=== PATIENT | female | born 1980 | race Caucasian/White ===

== ENCOUNTER 2017-07-04 14:10 | Outpatient (CLI) | payer BC ==
[2017-07-04 17:57] VITALS: BP 140/76; PULSE 93; RESP 18; TEMP 98
--- NOTE | 2017-07-19 10:52 | P.MSEPDOC ---
Presenting Problems - Arrival Data Date of Arrival on Unit: 07/04/17 Time of Arrival on Unit: 14:00 Mode of Transport: Ambulatory - Complaint OB-Reason for Admission/Chief Complaint: Other Comment: feeling like she is aching in low abd and sacral pains. untimeable. no uti s/sx. no n/v/d. abd soft to palp. Medical History - Information : 1 Para: 0 Term: 0 : 0 Abortions: Spontaneous or Elective: 0 Number of Living Children: 0 - Gestational Age Gestational Age by DEMI (wks/days): 29 Weeks and 2 Days Review of Systems - Review of Systems Constitutional: No problems Breast: No problems ENT: No problems Cardiovascular: No problems Respiratory: No problems Gastrointestinal: No problems Genitourinary: No problems Musculoskeletal: No problems Neurological: No problems Skin: No problems Vital Signs - Temperature Temperature: 98.0 F Temperature Source: Oral - Pulse Right Brachial Pulse Rate: 93 Pulse Assessment Method: Automatic Cuff - Respirations Respiratory Rate: 18 Oxygen Delivery Method: Room Air O2 Sat by Pulse Oximetry: 98 - Blood Pressure Right Arm Blood Pressure: 140/76 Blood Pressure Mean: 97 Blood Pressure Source: Automatic Cuff Medical Screen Scoring (Pre) - Cervical Exam Dilation: 0 cm = 0 Effacement: Exam Deferred Membranes: Intact - Uterine Contractions Frequency: N/A Duration: N/A Intensity: N/A - Maternal Vital Signs Maternal Temperature: N/A Maternal Blood Pressure: N/A Signs of Preeclampsia: N/A Maternal Respirations: N/A - Pain Assessment Pain Location and Character: Lower, Abdomen, Sacrum Pain Scale Used: Numeric (1 - 10) Pain Intensity: 2 Pain Description: *Acute Pain Frequency: Intermittent Pain Duration: 60 Pain Duration Units: Minutes Pain Behavior: None Exhibited Pain Aggravating Factors: Activity Non-Pharmacological Interventions: Position/Reposition - Maternal Trauma Maternal Trauma: N/A - Assessment Baseline FHR: 135 Heart Rate - NICHD Category: Category I (Normal) = 0 NST: Reactive Position: N/A Station: N/A - Total Score Total Score (Pre): 0 - Level of Risk Level of Risk: N/A Physician Notification (Pre) - Physician Notified Physician Notified Date: 07/04/17 Physician Notified Time: 14:45 Physician/Practitioner Notifed:: loc Spoke With: loc New Order Received: Yes - Notification Comment Comment: discharge home. Physician Notification (Post) - Physician Notified Physician Notified Date: 07/04/17 Physician Notified Time: 14:55 Physician/Practitioner Notified:: loc Spoke With: loc New Order Received: Yes - Notification Comment Comment: discharge home. keep next sched appt. Disposition - Disposition OB Disposition: Discharge to home Discharge Date: 07/04/17 Discharge Time: 14:55 I agree with the RN Medical Screening Exam: Yes Risk & Benefit of care provided described in d/c instruction: Yes Diagnosis: FALSE LABOR BEFORE 37 COMPLETED WEEKS OF GEST, THIRD TRI
== END 2017-07-04 14:55 | disposition home or self-care (01) ==
LOC: FBPOP 14:10
PROVIDERS: ATTEND Obstetrics & Gynecology
DX: O47.03 False labor before 37 completed weeks of gestation, third trimester (principal); Z3A.29 29 weeks gestation of pregnancy
CPT/HCPCS: 59025; 99213

== ENCOUNTER 2017-08-19 21:56 | Inpatient (IN) | payer BC ==
[~2017-08-19 21:56] MED LIST: BUPIVACAINE (PF) 0.25% 30 ML VIAL ONE; SODIUM CHLORIDE 0.9% 100 ML BAG ONE; fentaNYL (PF) 50 MCG/ML 5 ML AMP ONE
[2017-08-19] MEDS ORDERED: OXYTOCIN 10 UNIT/ML 1 ML VIAL IM PRN (22:46)
[2017-08-19] MEDS ORDERED: LIDOCAINE 1% (PF) 10 MG/ML (30 ML SDV) SQ PRN (22:46)
[2017-08-19] MEDS ORDERED: PENICILLIN G POTASSIUM 5,000,000 UNIT in DEXTROSE 5% IN WATER 100 ML IVPB STA ×2 (22:46)
[2017-08-19] MEDS ORDERED: METHYLERGONOVINE 0.2 MG/ML 1 ML AMP IM PRN (22:46)
[2017-08-19] MEDS ORDERED: TERBUTALINE 1 MG/ML VIAL SQ PRN (22:46)
[2017-08-19] MEDS ORDERED: CARBOPROST TROMETHAMINE 250 MCG/ML 1 ML AMP IM PRN (22:46)
[2017-08-19] MEDS ORDERED: BUTORPHANOL 1 MG/ML 1 ML VIAL IV PRN (22:49)
[2017-08-19] MEDS: LACTATED RINGERS 1,000 ML IV SCH (23:25)
[2017-08-19 23:29] VITALS: BMI 37.5
[2017-08-19 23:48] LABS: Basophils % (A) 0 %; Eosinophils # (A) 0.1 k/uL (0-0.7); Eosinophils % (A) 0 %; HCT 34.4 % (34.0-46.0); HGB 12.4 gm/dL (11.4-16.0); Hyperchromasia Slight; Lymphocytes # (A) 1.8 k/uL (1.0-4.8); Lymphocytes % (A) 14 %; MCH 31.8 pg (25.0-35.0); MCHC 35.9 g/dL (31.0-37.0); MCV 88.5 fL (80.0-100.0); Mean Platelet Volume 9.4; Monocytes # (A) 0.5 k/uL (0-1.0); Monocytes % (A) 4 %; Neutrophils # (A) 10.5 k/uL (1.3-7.7); Neutrophils % (A) 80 %; Platelet Count 209 k/uL (150-450); Poikilocytosis Slight; RBC 3.89 m/uL (3.80-5.40); RDW 15.7 % (11.5-15.5); WBC 13.1 k/uL (3.8-10.6)
--- NOTE | 2017-08-20 02:34 | P.HPOB ---
History of Present Illness H&P Date: 08/20/17 This is a 37-year-old white female 1 para 0 EDC 09/17/2017 at 36 weeks' gestation. Patient presents with a history of her water breaking at home at 2130 hours, clear fluid. She is having uterine contractions spontaneously. Fetus is been active throughout the . history is significant for blood type A-, antibody screen negative, rubella status immune. Group B strep culture status unknown. HIV testing, VDRL testing, hepatitis B surface antigen all negative. One-hour Glucola 105. ALLERGIES include Zithromax to which reports diarrhea. Social history: Patient has never been a smoker, she is , social alcohol use prior to only. Family history significant for hypertension, diabetes, and leukemia. Current medications vitamins daily. Past medical history is significant for endometriosis. 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 On exam this is a pleasant white female, 5 foot 0 inches, 182 pounds, admission blood pressure 139/85, vital signs are otherwise stable and the patient is afebrile. The general physical exam is within normal limits. Cervix is 1 cm dilated, 70% effaced, -3 station, vertex presentation, obvious ruptured membranes. heart rate is consistent with reactive NST. Impression: 36 week intrauterine , spontaneous amniorrhexis, in early labor. Group B strep cultures unknown. Advanced maternal age. Plan: Penicillin G per hospital protocol. Close maternal and surveillance. Anticipate normal spontaneous vaginal delivery. Review of Systems Negative except as in HPI Past Medical History History of Any Multi-Drug Resistant Organisms: None Reported Additional Past Surgical History / Comment(s): Menigioma removal 12/2016. no residual defects, no restrictions. has seen that Dr since discovered and no concerns for pushing Smoking Status: Never smoker Medications and Allergies Home Medications Medication Instructions Recorded Confirmed Type Acetaminophen [Tylenol] 650 mg PO HS PRN 07/04/17 08/19/17 History Omeprazole Magnesium [PriLOSEC OTC] 20 mg PO DAILY 07/04/17 08/19/17 History Pnv,Calcium 72/Iron/Folic Acid 1 tab PO DAILY 07/04/17 08/19/17 History [ Plus Tablet] Allergies Allergy/AdvReac Type Severity Reaction Status Date / Time No Known Allergies Allergy Verified 02/01/18 17:32 Exam - Vital Signs Vital signs: Vital Signs Temp Pulse Resp BP Pulse Ox 08/19/17 22:44 98.4 F 98 18 139/83 98 Intake and Output 08/19/17 08/19/17 08/20/17 14:59 22:59 06:59 Other: Weight 87.09 kg See dictation under HPI please Results Result Diagrams: 08/19/17 23:20 Abnormal Lab Results - Last 24 Hours (Table) 08/19/17 Range/Units 23:20 WBC 13.1 H (3.8-10.6) k/uL RDW 15.7 H (11.5-15.5) % Neutrophils # 10.5 H (1.3-7.7) k/uL Assessment and Plan Plan: Close maternal and surveillance. Penicillin G per hospital protocol. Anticipate normal spontaneous vaginal delivery. Time with Patient: Less than 30
[2017-08-20] MEDS: LACTATED RINGERS 1,000 ML IV SCH ×2 (03:12→06:54)
[2017-08-20] MEDS ORDERED: BUPIVACAINE (PF) 0.25% 25 ML, fentaNYL (PF) 200 MCG in SODIUM CHLORIDE 0.9% 71 ML EPIDURAL ONE (03:28)
[2017-08-20] MEDS: PENICILLIN G POTASSIUM 2,500,000 UNIT in DEXTROSE 5% IN WATER 100 ML IVPB SCH ×6 (03:46→11:39)
[2017-08-20] MEDS ORDERED: diphenhydrAMINE 25 MG CAP PO PRN (10:12)
[2017-08-20] MEDS ORDERED: BENZOCAINE/MENTHOL SPRAY 1 GM/SPRAY AEROSOL TOPICAL PRN (10:12)
[2017-08-20] MEDS ORDERED: Acetaminophen-Codeine 300-30mg TAB PO PRN ×2 (10:12)
[2017-08-20] MEDS ORDERED: diphenhydrAMINE 50 MG CAP PO PRN (10:12)
[2017-08-20] MEDS ORDERED: ZOLPIDEM 5 MG TAB PO PRN (10:12)
[2017-08-20] MEDS ORDERED: HYDROCORTISONE 2.5% RECTAL CREAM 30 GM TUBE RECTAL PRN (10:12)
[2017-08-20] MEDS ORDERED: WITCH HAZEL 1 EACH MED..PAD TOPICAL PRN (10:12)
[2017-08-20] MEDS ORDERED: diphenhydrAMINE 50 MG/ML 1 ML VIAL IVP PRN ×2 (10:12)
[2017-08-20] MEDS ORDERED: LANOLIN CREAM 5 GM TUBE TOPICAL PRN (10:12)
[2017-08-20] MEDS ORDERED: ACETAMINOPHEN TAB 325 MG TAB PO PRN (10:12)
[2017-08-20] MEDS ORDERED: SIMETHICONE 80 MG CHEWABLE PO PRN (10:12)
[2017-08-20] MEDS ORDERED: OXYTOCIN 20 UNITS/1000 ML NS 1,000 ML IV SCH (10:15)
--- NOTE | 2017-08-20 10:16 | P.PROBDLV ---
Vaginal Delivery Note - . Vaginal Delivery Note: The patient is a 37-year-old 1 para 0 admitted at 36-0/7 weeks with documented spontaneous rupture of membranes of clear fluid. Labor ensued on its own thereafter. Her has been essentially uncomplicated though she is Rh- and received RhoGAM at 28 weeks. She additionally falls into the category of advanced maternal age and declined testing. On labor and delivery, all signs were reassuring. She progressed through the latent phase of labor in normal fashion and had an epidural catheter placed near the onset of the active phase of labor. She then progressed fairly quickly through the active phase of labor to complete and -1 station. She pushed over the course of approximately 1-1/2 hours to a normal spontaneous vaginal delivery of a viable 6 lbs. 12 oz. baby boy with Apgars of 7 at 1 minute and 9 at 5 minutes delivered in the direct occiput anterior position. There was a nuchal cord 1 which was reduced following delivery of the infant. The placenta was delivered spontaneously, intact, and grossly normal with a grossly normal three-vessel cord inserted approximate 5 cm from the margin of the placental disc. There were no lacerations of the perineum, vagina, or cervix. All sponge, instrument , and needle counts were correct. There were no complications. Both mother and are resting comfortably in recovery of the infant has been taken the special care nursery for observation regarding possible issues of prematurity.
[2017-08-20] MEDS: IBUPROFEN 600 MG TAB PO PRN ×3 (10:40→22:59)
[2017-08-20] MEDS ORDERED: Rhogam IMMUNE GLOBULIN 1,500 UNIT/1 ML IM ONE (19:11)
[2017-08-20] MEDS: SENNOSIDES-DOCUSATE SODIUM 1 EACH TAB PO SCH (23:00)
[2017-08-21] MEDS: IBUPROFEN 600 MG TAB PO PRN ×3 (07:00→20:11)
--- NOTE | 2017-08-21 08:23 | P.PNOBGVD ---
Subjective - Subjective Patient reports: Reports appetite normal, Reports voiding normally, Reports pain well controlled, Reports ambulating normally : doing well, in NICU (For continued observation secondary to initial issues of prematurity) Objective - Latest Vital Signs Latest vital signs: Vital Signs Temp Pulse Resp BP Pulse Ox 08/20/17 23:36 97.9 F 96 14 127/77 98 08/20/17 20:00 98.4 F 101 H 16 128/70 08/20/17 15:49 98.1 F 108 H 16 122/71 97 08/20/17 11:59 98.1 F 88 16 133/73 08/20/17 11:29 100 16 126/66 08/20/17 10:59 98 16 134/64 08/20/17 10:44 95 16 122/63 08/20/17 10:29 101 H 16 124/62 08/20/17 10:14 100 16 129/66 08/20/17 09:59 98.1 F 122 H 16 148/79 Intake and Output 08/20/17 08/21/17 08/21/17 22:59 06:59 14:59 Other: # Voids 1 2 - Exam Extremities: Present: normal Abdomen: Present: normal appearance, soft Uterus: Present: normal, firm (The uterine fundus as tonic and nontender below the umbilicus.) Assessment and Plan (1) 36 weeks gestation of Current Visit: Yes Status: Acute Code(s): Z3A.36 - 36 WEEKS GESTATION OF SNOMED Code(s): 40450793 (2) Normal spontaneous vaginal delivery Current Visit: Yes Status: Acute Code(s): O80 - ENCOUNTER FOR FULL-TERM UNCOMPLICATED DELIVERY SNOMED Code(s): 45663457 Plan: Continue routine care. Anticipate discharge home tomorrow as the is likely to be released home tomorrow as well.
[2017-08-21] MEDS: SENNOSIDES-DOCUSATE SODIUM 1 EACH TAB PO SCH ×2 (13:10→22:48)
[2017-08-22] MEDS: IBUPROFEN 600 MG TAB PO PRN ×2 (03:30→10:14)
--- NOTE | 2017-08-22 08:50 | P.DS ---
Providers Date of admission: 08/19/17 22:18 Expected date of discharge: 08/22/17 Attending physician: Marc Quinn Primary care physician: Stated None - Discharge Diagnosis(es) (1) 36 weeks gestation of Current Visit: Yes Status: Acute (2) Normal spontaneous vaginal delivery Current Visit: Yes Status: Acute Hospital Course: The patient is a 37-year-old 1 para 0 admitted at 36-0/7 weeks by good dating parameters. She presents with documented spontaneous rupture of membranes with clear fluid. Her has been uncomplicated though she is Rh- and received RhoGAM at 28 weeks. She also falls into the category of advanced maternal age and declined testing. On labor and delivery, all signs are reassuring. She progressed through the latent phase of labor on her own and had an epidural catheter placed for analgesia. She then progressed to complete and pushed ultimately to a normal spontaneous vaginal delivery of a viable 6 lbs. 12 oz. baby boy with Apgars of 7 at 1 minute and 9 at 5 minutes. Her post course was unremarkable vital signs remained stable and her temperature was afebrile throughout. The was taken to the special care nursery for 24 hours the of observation at which time he is returned to the room. The patient was deemed stable for discharge on day #2 and was discharged home to follow-up in the office in 6 weeks routinely. Discharge instructions included calling for any significantly increased bleeding or foul- smelling lochia, significantly increased fever or abdominal pain, perineal complaints, breast complaints, or anything else that concerned her. She was additionally instructed to have nothing in the vagina for at least 6 weeks time to include intercourse. She understood her instructions and agrees to follow up as noted above. Discharge medications included continued vitamins as she has opted to breast-feed. She additionally was to take [id number] analgesic pain medications as needed. Maternal blood type is A- and rubella status is immune. Procedures: #1. Epidural analgesia #2. Normal spontaneous vaginal delivery Patient Condition at Discharge: Good Plan - Discharge Summary Discharge Rx Participant: No New Discharge Prescriptions: No Action Pnv,Calcium 72/Iron/Folic Acid [ Plus Tablet] 1 tab PO DAILY Acetaminophen [Tylenol] 650 mg PO HS PRN PRN Reason: body aches Omeprazole Magnesium [PriLOSEC OTC] 20 mg PO DAILY Discharge Medication List Acetaminophen [Tylenol] 650 mg PO HS PRN 07/04/17 [History] Omeprazole Magnesium [PriLOSEC OTC] 20 mg PO DAILY 07/04/17 [History] Pnv,Calcium 72/Iron/Folic Acid [ Plus Tablet] 1 tab PO DAILY 07/04/17 [ History] Follow up Appointment(s)/Referral(s): Marc Quinn MD [STAFF PHYSICIAN] - 6 Weeks Discharge Disposition: HOME SELF-CARE
[2017-08-22] MEDS: SENNOSIDES-DOCUSATE SODIUM 1 EACH TAB PO SCH (10:15)
[2017-08-22 19:43] VITALS: RESP 18
[2017-08-22 19:44] VITALS: BP 134/83; PULSE 91; TEMP 98.5
== END 2017-08-22 19:58 | disposition home or self-care (01) | DRG 775 ==
LOC: FBPOP 21:56 → 4FBP 22:18
PROVIDERS: ADMIT Obstetrics & Gynecology; ATTEND Obstetrics & Gynecology
PROC: 10E0XZZ Delivery of Products of Conception, External Approach (ICD-10-PCS; principal; 2017-08-20)
PROC: 3E0R3NZ Introduction of Analgesics, Hypnotics, Sedatives into Spinal Canal, Percutaneous Approach (ICD-10-PCS; 2017-08-20)
PROC: 00HU33Z Insertion of Infusion Device into Spinal Canal, Percutaneous Approach (ICD-10-PCS; 2017-08-20)
DX: O60.14X0 Preterm labor third trimester with preterm delivery third trimester, not applicable or unspecified (principal); O69.81X0 Labor and delivery complicated by cord around neck, without compression, not applicable or unspecified; Z37.0 Single live birth; Z3A.36 36 weeks gestation of pregnancy; Z83.3 Family history of diabetes mellitus; Z82.49 Family history of ischemic heart disease and other diseases of the circulatory system; Z80.6 Family history of leukemia; Z86.011 Personal history of benign neoplasm of the brain; Z88.8 Allergy status to other drugs, medicaments and biological substances; Z67.11 Type A blood, Rh negative; Z29.13 Encounter for prophylactic Rho(D) immune globulin
CPT/HCPCS: 59025; 84112; 85025; 85461; 88307; 99213

== ENCOUNTER → 2019-07-24 | Outpatient (CLI) | payer BC ==
--- NOTE | 2019-07-24 15:19 | US ---
EXAMINATION TYPE: US thyroid st tissue head/neck DATE OF EXAM: 07/24/2019 COMPARISON: CT 12/26/2011 CLINICAL HISTORY: R59.0 ENLARGED LYMPH NODES. Just not feeling well Within the right neck, there is a possible lymph node measuring 1.5 x 0.6 x 0.9 cm Technique: Real-time linear array sonography is performed over the soft tissues of the neck. Not dedi cated to the thyroid. IMPRESSION: 1. Right side lymph node
== END | disposition home or self-care (01) ==
LOC: RADUSWWP 14:46
PROVIDERS: ATTEND Family Medicine
DX: R59.0 Localized enlarged lymph nodes (principal)
CPT/HCPCS: 76536